=== PATIENT | male | born 1945 | race African-American/Black ===

== ENCOUNTER 2021-09-02 10:37 | Emergency (ER) | payer MEDICARE, OTHER ==
[~2021-09-02] VITALS: Ht 188 cm; Wt 109.0 kg
[2021-09-02 11:13] VITALS: BP 140/82
[2021-09-02] MEDS ORDERED: ACETAMINOPHEN 500MG TABLET PO ONE (11:15)
[2021-09-02] MEDS ORDERED: IBUPROFEN 600MG TABLET PO ONE (11:15)
[2021-09-02] MEDS ORDERED: NAPR-1176 MT ×3 (12:30→12:52)
== END 2021-09-02 13:11 | disposition home or self-care (01) ==
LOC: ER 10:56
DX: M25.561 Pain in right knee (principal); I10 Essential (primary) hypertension
CPT/HCPCS: 73562; 99283